=== PATIENT | male | born 1975 | race Caucasian/White ===

== ENCOUNTER → 2023-06-19 15:19 | Outpatient (CLI) | payer BC, SELFPAY ==
--- NOTE | ~2023-06-19 | MR_ITS ---
EXAMINATION: MR knee LT wo con DATE: 06/19/2023 16:12 INDICATION: Chronic left knee pain TECHNIQUE: Magnetic resonance imaging (MRI) of the left knee was performed without intravenous contra st. Sequences included coronal PD-weighted FSE, coronal PD-weighted FS FSE, sagittal T2-weighted FSE , sagittal PD-weighted FS FSE and axial PD weighted fat saturated FSE. COMPARISON: None. FINDINGS: Medial compartment: Complex tear of the body and posterior horn of the medial meniscus which includes both a longitudinal horizontal component as well as parrot beak configuration tear beginning at the free edge of the lat eral side of the posterior horn and extending medially and peripherally through at least the inner tw o thirds of the meniscus. Articular cartilage is normal. Lateral compartment: Lateral meniscus is normal. Articular cartilage is normal. Patellofemoral compartment: Subtle horizontal partial-thickness fissure at the lateral patellar facet. Trochlear cartilage is nor mal. Ligaments and tendons: Anterior and posterior cruciate ligaments are normal. There is thickening of the proximal medial verónica ateral ligament without surrounding edema consistent with scarring related to chronic sprain. Gas betty ears to be a partial tear of the anterior meniscal femoral ligament. The fibular collateral ligament complex is normal. The extensor mechanism is normal. The visualized medial and lateral hamstring tend ons as well as the iliotibial band are normal. Fluid: Small knee joint effusion. No loose osteochondral bodies identified. Osseous/other: Normal marrow signal. No fracture or pathologic marrow replacing process. There is prominent increase d fluid signal in the superficial suprapatellar fat pad which can be seen with fat pad impingement sy ndrome. Small focus of susceptibility artifact of indeterminate etiology which is centered at or near the skin surface superficial to the lateral inferior margin of the patella. IMPRESSION: 1. Complex medial meniscal tear. 2. Chronic sprain of the proximal medial collateral ligament including partial tear of the anterior m eniscal femoral ligament. 3. Partial-thickness chondral fissure at the lateral patellar facet. 4. Prominent edema at the superficial suprapatellar fat pad suggestive fat pad impingement syndrome. Reviewed, dictated and finalized at location A. [facility] IMPRESSION: 1. Complex medial meniscal tear. 2. Chronic sprain of the proximal medial collateral ligament including partial tear of the anterior meniscal femoral ligament. 3. Partial-thickness chondral fissure at the lateral patellar facet. 4. Prominent edema at the superficial suprapatellar fat pad suggestive fat pad impingement syndrome.
== END ==
PROVIDERS: PCP Family Medicine; Visit Provider Orthopaedic Surgery
DX: S83.232A Complex tear of medial meniscus, current injury, left knee, initial encounter (principal); S83.412A Sprain of medial collateral ligament of left knee, initial encounter; M25.562 Pain in left knee; G89.29 Other chronic pain; R60.9 Edema, unspecified
CPT/HCPCS: 73721

== ENCOUNTER 2024-05-27 00:56 | Day surgery (SDC) | payer BC, SELFPAY ==
--- NOTE | 2024-02-09 14:10 | SUR.PREOP ---
Patient called to reschedule his procedure due to doctor being unavailable. Message left on pt's vm requesting a call back.
--- NOTE | 2024-03-01 10:57 | SUR.PREOP ---
Patient called regarding his appointment and the doctor being unavailable for his procedure. Message left asking for a return call.
--- NOTE | 2024-03-03 09:28 | SUR.PREOP ---
Patient called regarding his appointment. Message left requesting a call back.
[2024-05-17 09:28] VITALS: BMI 26.5
[2024-05-27 08:11] VITALS: BP 158/96; PULSE 86; RESP 20; TEMP 36.2; O2SAT 100; BMI 27.4
[2024-05-27] MEDS: LACTATED RINGERS 1,000 ML 150 ML IV CONT (08:21)
--- NOTE | 2024-05-27 08:46 | PM.HPGS ---
History of Present Illness History of Present Illness Consent: Risks, benefits, and alternatives have been discussed and questions answered. Patient agrees to proceed with procedure. Chief complaint: Neoplasm screening Narrative: Alex Rausch is a 48 year old male here for first screening colonoscopy Review of Systems Review of Systems: All systems reviewed & are unremarkable except as noted in HPI and below PMFSH Past Medical History Medical History (Updated 05/27/24 @ 08:47 by Derrick Thomas MD) A-fib Arthritis (Unknown) Colon cancer screening Surgical History Surgical History (Updated 11/30/23 @ 16:33 by Patricia Crowley, Student) History of repair of anterior cruciate ligament of right knee 08/25/23 Status post lateral meniscus repair of left knee 2017; other R knee surgeries 1992, 1993 Social History Social History (Updated 11/30/23 @ 16:44 by Patricia Crowley, Student) Smoking packs per day: 1.5 Smoking cigarettes per day: 30.0 Smoking status: Former smoker Tobacco type: cigarettes Second hand tobacco smoke exposure: No Smoking end date: 08/03/09 Additional smoking assessment comments: 1 ppd for 10 years Alcohol intake: current Drinks per week: 6 Alcohol use details: 3-6 beers, 1-2x/week Substance use: never Substance use type: does not use Living arrangements: with family Occupation/Education: occupation 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 Gender identity (if verbalized by the patient): Male Spiritual care concerns: No Meds Home Medications and Allergies Home Medications Medication Instructions Recorded Confirmed Type cholecalciferol (vitamin D3) 25 25 mcg PO DAILY 11/30/23 05/27/24 History mcg (1,000 unit) capsule fluticasone propionate 50 1 spray intranasal DAILY 11/30/23 05/27/24 History mcg/actuation nasal spray,suspension fmvtlxqdhvc-fjx-reekpgvq-vit 3 cap PO DAILY 11/30/23 05/27/24 History C-Mn-hrb21 500 mg-333 mg-5 mg capsule magnesium glycinate 100 mg (as 100 mg PO TID 11/30/23 05/27/24 History glycinate) tablet omega 6-fsg-zra-fish oil 1,200 mg 2 cap PO DAILY 11/30/23 05/27/24 History (144 mg-216 mg) capsule (Fish Oil) vitamin B complex 3 cap PO DAILY 11/30/23 05/27/24 History Allergies Allergy/AdvReac Type Severity Reaction Status Date / Time No Known Allergies Allergy Verified 05/27/24 08:10 Vital Signs Vital Signs - 24 hr 05/27/24 08:11 Temperature 97.2 F L Pulse Rate 86 Respiratory Rate 20 Blood Pressure 158/96 H Pulse Oximetry 100 Oxygen Delivery Room Air Exam Const: General: comfortable and no acute distress HENMT: Face/Nose/Sinus: Normal nares present Eyes: General: appearance normal, both eyes and all related structures Neck: Neck: no JVD Resp: Auscultation: clear to auscultation bilaterally Cardio: Rate: regular rate Rhythm: regular rhythm GI: Inspection: non-distended GI Palp: Yes Soft to palpation Skin: General skin exam: normal color Neuro: General: gait normal Speech: normal speech Extrem: General: normal to inspection Psych: Mental Status: mental status grossly normal Assessment and Plan Assessment and plan (1) Colon cancer screening: Code(s): Z12.11 - Encounter for screening for malignant neoplasm of colon Status: Acute Assessment and Plan: colonoscopy
--- NOTE | 2024-05-27 08:49 | P.PNAN_ITS ---
Anes - Initial Pre Proc Eval Procedure: Operation Date: 05/27/24 09:30 Proposed Procedures p Screening Colonoscopy - Derrick Thomas MD Date/Time: 05/27/24 08:49 Surgeon: Derrick Thomas MD Pre Op Diagnosis: Neoplasm screening Patient Data Age: 48 Gender: M Height: 1.78 m Weight: 86.9 kg Last Vital Signs Temp 97.2 F L 05/27/24 08:11 Pulse 86 05/27/24 08:11 Resp 20 05/27/24 08:11 BP 158/96 H 05/27/24 08:11 Pulse Ox 100 05/27/24 08:11 O2 Del Method Room Air 05/27/24 08:11 Allergies Allergy/AdvReac Type Severity Reaction Status Date / Time No Known Allergies Allergy Verified 05/27/24 08:10 Home Medications Medication Instructions Recorded Confirmed Type cholecalciferol (vitamin D3) 25 25 mcg PO DAILY 11/30/23 05/27/24 History mcg (1,000 unit) capsule fluticasone propionate 50 1 spray intranasal DAILY 11/30/23 05/27/24 History mcg/actuation nasal spray,suspension qwwgwlsapjm-jza-yubbvlsy-vit 3 cap PO DAILY 11/30/23 05/27/24 History C-Mn-hrb21 500 mg-333 mg-5 mg capsule magnesium glycinate 100 mg (as 100 mg PO TID 11/30/23 05/27/24 History glycinate) tablet omega 1-rgt-ppr-fish oil 1,200 mg 2 cap PO DAILY 11/30/23 05/27/24 History (144 mg-216 mg) capsule (Fish Oil) vitamin B complex 3 cap PO DAILY 11/30/23 05/27/24 History Patient hx anesthesia problems: none Family hx anesthesia problems: none Results Review: All pre-operative results and documents have been reviewed as part of the pre- operative evaluation. [facility] Past Medical History Medical History A-fib Arthritis (Unknown) Colon cancer screening Surgical History Surgical History History of repair of anterior cruciate ligament of right knee 08/25/23 Status post lateral meniscus repair of left knee 2017; other R knee surgeries 1992, 1993 Social History Social History Smoking packs per day: 1.5 Smoking cigarettes per day: 30.0 Smoking status: Former smoker Tobacco type: cigarettes Second hand tobacco smoke exposure: No Smoking end date: 08/03/09 Additional smoking assessment comments: 1 ppd for 10 years Alcohol intake: current Drinks per week: 6 Alcohol use details: 3-6 beers, 1-2x/week Substance use: never Substance use type: does not use Living arrangements: with family Occupation/Education: occupation 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 Hx of pAfib, cardiology note reviewed and no recurrence, cardiac testing all neg. Informed Consent: The patient's anesthetic plan and its attendant risks and benefits were discussed with the patient/family/POA. Questions were solicited and answers provided to the satisfaction of the patient/family/POA.
[2024-05-27 09:01] VITALS: BP 136/103; PULSE 67; RESP 19; O2SAT 99
[2024-05-27 09:11] VITALS: BP 150/90; PULSE 60; RESP 19; O2SAT 100
[2024-05-27 09:21] VITALS: BP 147/89; PULSE 66; RESP 17; O2SAT 100
== END 2024-05-27 09:29 | disposition home or self-care (01) ==
PROVIDERS: PCP Family Medicine; Referring Provider Family Medicine; Visit Provider Internal Medicine Gastroenterology
PROC: 0DJD8ZZ Inspection of Lower Intestinal Tract, Via Natural or Artificial Opening Endoscopic (ICD-10-PCS; CPT 45378; principal; 2024-05-27 09:30)
DX: Z12.11 Encounter for screening for malignant neoplasm of colon (principal); K64.8 Other hemorrhoids; M19.90 Unspecified osteoarthritis, unspecified site; Z98.890 Other specified postprocedural states; Z87.891 Personal history of nicotine dependence; Z86.79 Personal history of other diseases of the circulatory system
CPT/HCPCS: 45378; J2704; J7120